=== PATIENT | female | born 1940 | race Caucasian/White ===

== ENCOUNTER 2021-05-18 11:53 | Observation (INO) | payer MEDICARE, SELFPAY ==
[2021-05-18] VITALS (22 sets, daily range): BP systolic 142–185; BP diastolic 68–90; PULSE 59–86; RESP 11–29; TEMP 36.7–37; O2SAT 93–97; BMI 30.4
--- NOTE | 2021-05-18 12:13 | DI.RAD.S_ITS ---
PROCEDURE: XR CHEST 1V INDICATIONS: chest pain TECHNIQUE: One view of the chest was acquired. COMPARISON: None. FINDINGS: Surgical changes and devices: None. Lungs and pleura: Lungs are clear. No pleural effusions or pneumothorax. Mediastinum: Mild aortic atherosclerotic calcifications. Prominence of the right mediastinal border may be secondary to aortic tortuosity or dilation of the ascending thoracic aorta. Heart size is within normal limits. Bones and chest wall: No suspicious bony lesions. Overlying soft tissues appear unremarkable. IMPRESSION: Lungs are clear. Mild prominence of the right mediastinal border may be secondary to aortic tortuosity or a dilated ascending aorta. If there is concern for acute aortic syndrome, findings could be further evaluated with contrast-enhanced chest CT or CTA. Dictated by: Dandy Jack M.D. on 05/18/2021 at 12:55 Approved by: Dandy Jack M.D. on 05/18/2021 at 13:00
[2021-05-18 12:41] LABS: Add Manual Diff / Slide Review NO; Basophils Absolute Auto 0 /uL (0-100); Basophils Percent Auto 0.7 % (0-2); Eosinophils Absolute Auto 0 /uL (0-450); Eosinophils Percent Auto 1.1 % (2-4); Hematocrit 43.2 % (36-46); Hemoglobin 14.6 g/dL (12.0-16.0); Lymphocytes Absolute Auto 1000 /uL (1100-4500); Lymphocytes Percent Auto 23.5 % (25-40); Mean Corpuscular HGB Conc 33.7 % (30-36); Mean Corpuscular Hemoglobin 31.1 PG (26-34); Mean Corpuscular Volume 92.3 fL (80-100); Monocytes Absolute Auto 200 /uL (0-900); Monocytes Percent Auto 5.7 % (3-14); Neutrophils Absolute Auto 3000 /uL (1500-7000); Platelet Count 172 X10^3/uL (150-400); Red Blood Cell Count 4.68 X10^6/uL (4.0-5.2); White Blood Cell Count 4.3 X10^3/uL (4.5-11.0)
[2021-05-18 12:50] LABS: Alanine Aminotransferase 16 IU/L (<35); Albumin 4.4 g/dL (3.5-5.0); Albumin Globulin Ratio 1.5 (1.0-2.8); Alkaline Phosphatase 78 U/L (38-126); Aspartate Aminotransferase 29 IU/L (14-36); BUN Creatinine Ratio 26.7 (6-22); Bilirubin Total 1.8 mg/dL (0.2-1.3); Blood Urea Nitrogen 16 mg/dL (7-17); Calcium 9.2 mg/dL (8.4-10.2); Carbon Dioxide 29 mmol/L (22-32); Chloride 106 mmol/L (98-107); Creatine Kinase 51 U/L (30-135); Estimated Glomerular Filt Rate > 60.0 mL/min (>60); Glucose 98 mg/dL (80-110); Lipase 95 U/L (23-300); Sodium 141 mmol/L (137-145); Total Protein 7.4 g/dL (6.3-8.2)
[2021-05-18 12:51] LABS: HEMOLYSIS 74 (0-50)
[2021-05-18 12:52] LABS: Potassium 4.1 mmol/L (3.4-5.1)
[2021-05-18 13:01] LABS: Troponin I < 0.012 ng/mL (0.01-0.034)
--- NOTE | 2021-05-18 13:48 | ED_ITS ---
HPI - Dizziness General Chief Complaint: Dizziness Stated Complaint: Dizzy Time Seen by Provider: 05/18/21 13:45 Source: patient Mode of arrival: Ambulatory Limitations: no limitations History of Present Illness HPI Narrative: This is an 80-year-old female comes emergency department with complaint of dizziness. Patient describes sensation that the room is spinning around her. Initially it was just when she would get up and down but now she is fine and current even when lying in bed. She states earlier in the week she was sort of walking like she was drunk. She states she has been able to ambulate more annetta ropriately since then. She has a mild headache today but has not been having them persistently, no set vision changes, no new numbness, no new tingling. She describes having some weakness on her right leg an arm but attributes this to chronic right shoulder pain her arm is always weak, and that her right leg hurts when she tries to move it and it will actually move it is weak. She denies chest pain, no shortness of breath. 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 She has a history of hypothyroidism and hypertension she takes a thyroid supplement and amlodipine. No aspirin or anticoagulants. She has had hip surgery x2 bilaterally, left knee surgery. No tobacco, alcohol illicit. Her primary care is a Dr. Doan at [facility]. She is accompanied by her . Related Data Home Medications Medication Instructions Recorded Confirmed levothyroxine 88 mcg capsule 88 mcg PO DAILY 03/29/20 05/18/21 Allergies Allergy/AdvReac Type Severity Reaction Status Date / Time No Known Drug Allergies Allergy Verified 05/18/21 12:07 Review of Systems Review of Systems ROS Unobtainable: All systems reviewed & are unremarkable except as noted in HPI and below Patient History Medical History No active medical problems Social History household members: spouse and children Smoking Status: Never smoker alcohol intake: current Smoking Status: Never smoker Substance Use Type: does not use Exam Narrative Exam Narrative: GEN: well nourished, well appearing female, alert and oriented x 3, patient appears to be in mild distress. HEENT: Atraumatic, pupils are equal round reactive to light, extraocular movements are intact, nares are clear, TMs are clear with no fluid, there is no conjunctival pallor. Throat is clear without any exudates, erythema, tonsillar enlargement or uvular deviation, no facial droop. HEART: Regular rate and rhythm without murmur, clicks, rubs. LUNGS:Lungs clear to auscultation, no wheezes, rales, crackles, chest moves symmetrically ABD:bowel sounds normal, soft, non-tender, no guarding, rebound, rigidity, no masses noted, no hepatosplenomegaly :No CVA tenderness MSCL: Non-tender, no muscle atrophy, muscles strength 5/5 upper and lower extremities, full range of motion. NEURO:CN 2-12 intact, sensation normal. finger nose finger test normal, heel chau test normal, romberg normal Initial Vital Signs Initial Vital Signs: Vital Signs Temperature 98.0 F 05/18/21 12:07 Pulse Rate 76 05/18/21 12:07 Respiratory Rate 14 05/18/21 12:07 Blood Pressure 185/90 H 05/18/21 12:07 Pulse Oximetry 97 05/18/21 12:07 Scores NIH Stroke Scale Level of Conciousness: Alert, keenly responsive Ask month/age: Answers both questions correctly. 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) Left leg drift: No drift for full 5 sec Right leg drift: No drift for full 5 sec Limb ataxia: Absent Sensory on face/arms/legs: Normal, no sensory loss Best language: No aphasia, normal Dysarthria: Normal Extinction or inattention: No abnormality Total NIH Stroke scale score: 0 Course Orders Ordered: ED Orders 05/18/21 12:13 XR chest 1V Stat EKG-12 Lead Stat 05/18/21 12:15 Complete Blood Count AUTO DIFF Stat Comprehensive Metabolic Panel Stat Lipase Stat Magnesium Stat Troponin & CK Cardiac Panel Stat 05/18/21 12:20 COVID19 -Nasal swab/Pre-Proc Stat 05/18/21 14:56 CT angio head and neck Stat CT head/brain wo con Stat Discontinued Medications Aspirin (Aspirin 81 Mg Chew Tab) 324 mg PO NOW ONE Stop: 05/18/21 16:33 Last Admin: 05/18/21 16:51 Dose: 324 mg Documented by: DIONICIO Reevaluation(s) Reevaluation #1: Discussed today's findings including the fact that there was mass in the right axilla as well as the left anterior paratracheal region suggesting ectopic thyroid tissue and further workup would be appropriate including a nuclear medicine thyroid exam. Patient ambulated in the department but had some mild difficulty. Time: 16:25 Consultations Consultation #1: Dr. Turpin, accepts for inpatient CVA/Vertigo for workup with persistent symptoms for 2 weeks. Time: 16:32 Vital Signs Vital signs: Vital Signs - 8 hr 05/18/21 12:07 05/18/21 12:36 05/18/21 13:00 Temperature 98.0 F Pulse Rate 76 73 62 Pulse Rate [Orthostatic Lying] Pulse Rate [Orthostatic Sitting] Pulse Rate [Orthostatic Standing] Respiratory Rate 14 14 Blood Pressure 185/90 H 146/74 H Blood Pressure [Orthostatic Lying] Blood Pressure [Orthostatic Sitting] Blood Pressure [Orthostatic Standing] Pulse Oximetry 97 97 94 05/18/21 13:30 05/18/21 13:32 05/18/21 13:34 Temperature Pulse Rate 59 L 65 76 Pulse Rate [Orthostatic Lying] Pulse Rate [Orthostatic Sitting] Pulse Rate [Orthostatic Standing] Respiratory Rate 13 19 17 Blood Pressure 149/78 H 146/84 H 168/87 H Blood Pressure [Orthostatic Lying] Blood Pressure [Orthostatic Sitting] Blood Pressure [Orthostatic Standing] Pulse Oximetry 93 93 97 05/18/21 13:35 05/18/21 13:38 05/18/21 14:00 Temperature Pulse Rate 74 62 Pulse Rate [Orthostatic Lying] 63 Pulse Rate [Orthostatic Sitting] 76 Pulse Rate [Orthostatic Standing] 73 Respiratory Rate 16 14 Blood Pressure 171/89 H Blood Pressure [Orthostatic Lying] 146/84 H Blood Pressure [Orthostatic Sitting] 168/87 H Blood Pressure [Orthostatic Standing] 171/89 H Pulse Oximetry 97 94 05/18/21 14:01 05/18/21 14:30 05/18/21 15:00 Temperature Pulse Rate 64 66 68 Pulse Rate [Orthostatic Lying] Pulse Rate [Orthostatic Sitting] Pulse Rate [Orthostatic Standing] Respiratory Rate 13 16 29 H Blood Pressure 148/77 H 142/69 H Blood Pressure [Orthostatic Lying] Blood Pressure [Orthostatic Sitting] Blood Pressure [Orthostatic Standing] Pulse Oximetry 94 95 96 05/18/21 15:16 05/18/21 15:30 05/18/21 16:05 Temperature Pulse Rate 66 65 86 Pulse Rate [Orthostatic Lying] Pulse Rate [Orthostatic Sitting] Pulse Rate [Orthostatic Standing] Respiratory Rate 21 11 L Blood Pressure 163/72 H 147/72 H Blood Pressure [Orthostatic Lying] Blood Pressure [Orthostatic Sitting] Blood Pressure [Orthostatic Standing] Pulse Oximetry 97 93 05/18/21 16:07 05/18/21 16:30 Temperature Pulse Rate 73 68 Pulse Rate [Orthostatic Lying] Pulse Rate [Orthostatic Sitting] Pulse Rate [Orthostatic Standing] Respiratory Rate 15 13 Blood Pressure 147/76 H 151/68 H Blood Pressure [Orthostatic Lying] Blood Pressure [Orthostatic Sitting] Blood Pressure [Orthostatic Standing] Pulse Oximetry 96 95 MDM - Dizziness Lab Data Result diagrams: 05/18/21 12:15 05/18/21 12:15 Labs: Lab Results 05/18/21 05/18/21 05/18/21 Range/Units 12:15 12:15 12:20 WBC 4.3 L (4.5-11.0) X10^3/uL RBC 4.68 (4.0-5.2) X10^6/uL Hgb 14.6 (12.0-16.0) g/dL Hct 43.2 (36-46) % MCV 92.3 (80-100) fL MCH 31.1 (26-34) PG MCHC 33.7 (30-36) % RDW 14.0 (11.6-14.8) % Plt Count 172 (150-400) X10^3/uL Neut % (Auto) 69.0 (50-75) % Lymph % (Auto) 23.5 L (25-40) % [place] % (Auto) 5.7 (3-14) % Eos % (Auto) 1.1 L (2-4) % Baso % (Auto) 0.7 (0-2) % Neut # (Auto) 3000 (8365-9491) /uL Lymph # (Auto) 1000 L (1955-7048) /uL [place] # (Auto) 200 (0-900) /uL Eos # (Auto) 0 (0-450) /uL Baso # (Auto) 0 (0-100) /uL Sodium 141 (137-145) mmol/L Potassium 4.1 (3.4-5.1) mmol/L Chloride 106 (98-107) mmol/L Carbon Dioxide 29 (22-32) mmol/L BUN 16 (7-17) mg/dL Creatinine 0.60 (0.52-1.04) mg/dL Estimated GFR > 60.0 (>60) mL/min BUN/Creatinine Ratio 26.7 H (6-22) Glucose 98 (80-110) mg/dL Calcium 9.2 (8.4-10.2) mg/dL Magnesium 2.0 (1.6-2.3) mg/dL Total Bilirubin 1.8 H (0.2-1.3) mg/dL AST 29 (14-36) IU/L ALT 16 (<35) IU/L Alkaline Phosphatase 78 (38-126) U/L Total Creatine Kinase 51 (30-135) U/L CK-MB (CK-2) TNP CK-MB (CK-2) Rel Index TNP Troponin I < 0.012 (0.01-0.034) ng/mL Total Protein 7.4 (6.3-8.2) g/dL Albumin 4.4 (3.5-5.0) g/dL Globulin 3.0 (1.7-4.1) g/dL Albumin/Globulin Ratio 1.5 (1.0-2.8) Lipase 95 (23-300) U/L SARS-CoV-2 (PCR) Negative (Negative) Imaging Data Chest x-ray: Radiologist's Impression: Launch?[address] [address] XRay Report Signed Patient: Joseline Mccain MR#: [id number] : 1940 Acct:[id number] Age/Sex: 80 / F Date of Service: 05/18/21 Loc: ED Accession Number: [id number] ?? Procedure: XR chest 1V Ordering Provider: Mank,Larissa C D.O. PROCEDURE:? XR CHEST 1V ? INDICATIONS:? chest pain ? TECHNIQUE:? One view of the chest was acquired.? ? COMPARISON:? None. ? FINDINGS:? ? Surgical changes and devices:? None.? ? Lungs and pleura:? Lungs are clear.? No pleural effusions or pneumothorax.? ? Mediastinum:? Mild aortic atherosclerotic calcifications.? Prominence of the right mediastinal border may be secondary to aortic tortuosity or dilation of the ascending thoracic aorta.? Heart size is within normal limits. ? Bones and chest wall:? No suspicious bony lesions.? Overlying soft tissues appear unremarkable.? ? IMPRESSION:? Lungs are clear.? Mild prominence of the right mediastinal border may be secondary to aortic tortuosity or a dilated ascending aorta.? If there is concern for acute aortic syndrome, findings could be further evaluated with contrast- enhanced chest CT or CTA. ? ? Dictated by: Dandy Jack M.D. on 05/18/2021 at 12:55 ? ? Approved by: Dandy Jack M.D. on 05/18/2021 at 13:00?? CTA - brain/neck: Radiologist's Impression: Launch?[place] [address] CT Scan Report Signed Patient: Joseline Mccain MR#: [id number] : 1940 Acct:[id number] Age/Sex: 80 / F Date of Service: 05/18/21 Loc: ED Accession Number: [id number] ?? Procedure: CT angio head and neck Ordering Provider: Larissa Christian D.O. PROCEDURE:? CT ANGIO HEAD AND NECK ? INDICATIONS:? vertigo x 2 weeks, worsening. ? TECHNIQUE:? After the administration of intravenous contrast, 1 mm thick sections acquired from the aortic arch through the [place] of [place].? Post-contrast 4.5 mm thick sections then re-acquired from the foramen magnum to the vertex.? 3-dimensional mqjolfj-yptlxjkub-eviqxoznkj (MIP) and/or volume rendering reformats were acquired of the central intracranial vasculature and neck separately. ? COMPARISON:? None. ? FINDINGS:? Image quality:? Excellent.? ? BRAIN:? The ventricular system and cortical sulci demonstrate atrophy, consistent for the patient's stated age. There are areas of hypodensity within the periventricular and subcortical white matter.? There is no acute intra-or extra axial fluid collection. No acute hemorrhage, mass lesion or midline shift. Brainstem is unremarkable. Globes are symmetrical. Sinuses are aerated. Osseous structures are intact. ? HEAD CT ANGIOGRAPHY:? Anterior circulation:? Intracranial internal carotid arteries are normal in size and flow.? The flow within the paired anterior cerebral arteries is normal and symmetric.? The flow within the middle cerebral arteries is normal and symmetric.? The anterior communicating artery is seen.? No aneurysms are seen.? ? Posterior circulation:? Visualized portions of the vertebral arteries demonstrate normal caliber, and join to form a normal appearing basilar artery.? Flow within the posterior cerebral arteries is normal and symmetric.? No aneurysms are seen.? There is a slight left vertebral artery dominance. ? NECK CT ANGIOGRAPHY:? Carotid system:? The great vessels demonstrate a conventional anatomy as they arise from the aortic arch.? The origins of the common carotid arteries appear patent.? The common carotid arteries demonstrate normal caliber and courses.? The bifurcation regions are both widely patent.? The internal carotid arteries demonstrate normal calibers and courses.? ? Posterior circulation:? The origins of the vertebral arteries both appear widely patent.? The more superior extracranial portions of both vertebral arteries also demon strate normal courses and calibers.? They join to form a normal appearing basilar artery.? ? Soft tissues:? Visualized neck soft tissues demonstrate no suspicious abnormalities.? There is a 2.8 x 2.1 cm focus of soft tissue density in the left anterior paratracheal region approximately 4 cm inferior to the left thyroid lobe.? Left thyroid particularly the left lobe is hypoplastic.? No priors are available for comparison.? There is a heterogeneous focus area of low attenuation and enhancement within the right axilla measuring 3.9 x 4.2 cm.? ? Bones:? No suspicious bony lesions.? Visualized cervical spine appears normally aligned.? IMPRESSION:? 1. No acute intracranial process. ? 2. Moderate atrophy and chronic microvascular ischemic changes. ? 3. No areas of hemodynamically significant stenosis, vascular occlusion or aneurysmal dilation within the anterior or posterior circulation. ? 4. No areas of hemodynamically significant stenosis, vascular occlusion or aneurysmal dilation within the neck vasculature. ? 5. Heterogeneous soft tissue density in the left anterior paratracheal region.? 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 However, other etiology cannot be definitively excluded.? As clinically indicated, further evaluation with nuclear medicine thyroid exam may be helpful. ? 6. Heterogeneous mass within the right axilla as described above.? While etiology is uncertain on the basis of this exam, overall appearance raises concern for malignancy and biopsy is recommended. ? Any quantitative measurements of stenosis were performed using NASCET criteria.? ? ? Dictated by: Caitlyn Coughlin M.D. on 05/18/2021 at 15:36 ? ? Approved by: Caitlyn Coughlin M.D. on 05/18/2021 at 15:43?? ECG Data Attestation: I personally reviewed and interpreted this ECG as follows: Interpretation: Sinus rhythm rate of 65 VT 158, QRS 88 QTC 430. Patient does not have any priors for comparison. [facility] Narrative Medical decision making narrative: This is an 80-year-old female comes emergency department with complaint of persistent vertigo symptoms for the past 2 weeks. It has not improved it has been rapidly worsening. She does note some time she walks like she is drunk. Head and neck CT angiography shows some possible malignancy but no other clear changes or hemodynamic changes. 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 Patient was given aspirin and spoke with hospitalist about keeping for observation stroke workup an MRI to more fully evaluate her persistent vertigo. Discharge Plan Departure Patient Disposition: Admitted As Inpatient Clinical Impression: Vertigo, Acute CVA (cerebrovascular accident) Admit Date/Time: 05/18/21 16:32 Admit Provider: Ferdinand Turpin
--- NOTE | 2021-05-18 14:56 | DI.CT.S_ITS ---
PROCEDURE: CT HEAD/BRAIN WO CON INDICATIONS: vertigo x 2 weeks, worsening. TECHNIQUE: Noncontrast 4.5 mm thick angled axial sections acquired from the foramen magnum to the vertex, with coronal and sagittal reformats. For radiation dose reduction, the following was used: automated exposure control, adjustment of mA and/or kV according to patient size. COMPARISON: [facility], CT, CT ANGIO HEAD AND NECK, 05/18/2021, 15:02. FINDINGS: Image quality: Excellent. CSF spaces: Basal cisterns are patent. No extra-axial fluid collections. The ventricles are symmetric in size and shape. Brain: No intracranial bleeds or masses. There is cerebral volume loss for age, with resultant ventricular and sulcal prominence. There are periventricular and deep white matter chronic small vessel ischemic changes. There is intracranial internal carotid artery atherosclerosis. Skull and face: Calvarium and visualized facial bones appear intact, without suspicious lesions. Sinuses: Visualized sinuses and mastoids are clear. IMPRESSION: 1. No acute intracranial process. 2. Moderate atrophy and chronic microvascular ischemic changes. Dictated by: Caitlyn Coughlin M.D. on 05/18/2021 at 15:33 Approved by: Caitlyn Coughlin M.D. on 05/18/2021 at 15:35
--- NOTE | 2021-05-18 14:56 | DI.CT.S_ITS ---
PROCEDURE: CT ANGIO HEAD AND NECK INDICATIONS: vertigo x 2 weeks, worsening. TECHNIQUE: After the administration of intravenous contrast, 1 mm thick sections acquired from the aortic arch through the [place] of [place]. Post-contrast 4.5 mm thick sections then re-acquired from the foramen magnum to the vertex. 3-dimensional hyziase-pimjxgcwv-qwdzavhton (MIP) and/or volume rendering reformats were acquired of the central intracranial vasculature and neck separately. COMPARISON: None. FINDINGS: Image quality: Excellent. BRAIN: The ventricular system and cortical sulci demonstrate atrophy, consistent for the patient's stated age. There are areas of hypodensity within the periventricular and subcortical white matter. There is no acute intra-or extra axial fluid collection. No acute hemorrhage, mass lesion or midline shift. Brainstem is unremarkable. Globes are symmetrical. Sinuses are aerated. Osseous structures are intact. HEAD CT ANGIOGRAPHY: Anterior circulation: Intracranial internal carotid arteries are normal in size and flow. The flow within the paired anterior cerebral arteries is normal and symmetric. The flow within the middle cerebral arteries is normal and symmetric. The anterior communicating artery is seen. No aneurysms are seen. Posterior circulation: Visualized portions of the vertebral arteries demonstrate normal caliber, and join to form a normal appearing basilar artery. Flow within the posterior cerebral arteries is normal and symmetric. No aneurysms are seen. There is a slight left vertebral artery dominance. NECK CT ANGIOGRAPHY: Carotid system: The great vessels demonstrate a conventional anatomy as they arise from the aortic arch. The origins of the common carotid arteries appear patent. The common carotid arteries demonstrate normal caliber and courses. The bifurcation regions are both widely patent. The internal carotid arteries demonstrate normal calibers and courses. Posterior circulation: The origins of the vertebral arteries both appear widely patent. The more superior extracranial portions of both vertebral arteries also demonstrate normal courses and calibers. They join to form a normal appearing basilar artery. Soft tissues: Visualized neck soft tissues demonstrate no suspicious abnormalities. There is a 2.8 x 2.1 cm focus of soft tissue density in the left anterior paratracheal region approximately 4 cm inferior to the left thyroid lobe. Left thyroid particularly the left lobe is hypoplastic. No priors are available for comparison. There is a heterogeneous focus area of low attenuation and enhancement within the right axilla measuring 3.9 x 4.2 cm. Bones: No suspicious bony lesions. Visualized cervical spine appears normally aligned. IMPRESSION: 1. No acute intracranial process. 2. Moderate atrophy and chronic microvascular ischemic changes. 3. No areas of hemodynamically significant stenosis, vascular occlusion or aneurysmal dilation within the anterior or posterior circulation. 4. No areas of hemodynamically significant stenosis, vascular occlusion or aneurysmal dilation within the neck vasculature. 5. Heterogeneous soft tissue density in the left anterior paratracheal region. 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 However, other etiology cannot be definitively excluded. As clinically indicated, further evaluation with nuclear medicine thyroid exam may be helpful. 6. Heterogeneous mass within the right axilla as described above. While etiology is uncertain on the basis of this exam, overall appearance raises concern for malignancy and biopsy is recommended. Any quantitative measurements of stenosis were performed using NASCET criteria. Dictated by: Caitlyn Coughlin M.D. on 05/18/2021 at 15:36 Approved by: Caitlyn Coughlin M.D. on 05/18/2021 at 15:43
[2021-05-18 15:20] LABS: COVID19 -Nasal RAPID Negative (Negative)
[2021-05-18] MEDS: ASPIRIN 81 MG CHEW TAB 324 MG PO (16:51)
--- NOTE | 2021-05-18 18:58 | DI.MRI.S_ITS ---
PROCEDURE: MR HEAD/BRAIN WO CON INDICATIONS: r/o post CVA TECHNIQUE: Non-contrast axial T1 spin echo, axial T2 fast spin echo, sagittal and axial FLAIR, coronal T2 fast spin echo, axial gradient echo, axial diffusion and ADC through the brain. COMPARISON: None. FINDINGS: Image quality: Excellent. CSF spaces: Ventricles appear symmetric in size and shape. Basal cisterns are patent. No extra-axial fluid collections. Brain: No intracranial bleeds or mass effects. There is cerebral volume loss for age. There are mild periventricular and deep white matter chronic small vessel ischemic changes. Brainstem appears normal. Diffusion-weighted images show no acute ischemic insults. No chronic ischemic insults. Normal intravascular flow voids are present. Skull and face: Calvarial bone marrow is normal in signal. Orbits are normal. Sinuses: Sinuses and mastoids are clear. IMPRESSION: 1. No evidence acute stroke, hemorrhage, or mass. 2. Age-related volume loss and mild small vessel ischemic change. Dictated by: Balbir Arriaza M.D. on 05/19/2021 at 14:21 Approved by: Balbir Arriaza M.D. on 05/19/2021 at 14:26
[2021-05-18 21:39] LABS: TSH w/ Reflex to FT4 1.03 uIU/mL (0.47-4.68)
[2021-05-19] VITALS (12 sets, daily range): BP systolic 127–164; BP diastolic 72–102; PULSE 72–102; RESP 16–18; TEMP 36.3–36.9; O2SAT 94–98
--- NOTE | 2021-05-19 04:11 | P.HP_ITS ---
History of Present Illness History of Present Illness Date Patient Seen: 05/18/21 Time Patient Seen: 18:57 Chief complaint: Dizzy Narrative: Joseline Mccain?is an 80-year-old female with a history of hypothyroidismand HTN presented to the ED with complaint of dizziness.? Patient describes sensation that the room is spinning around her.? Initially it was just when she would get up and down but now she experiences even when lying in bed.? She states she has not been able to ambulate, do to vertigo. Patient denies headache, vision changes, numbness, tingling, chest pain, SOB, recent head injury, nausea vomiting abdominal pain, fever, body aches, chills, ear aches, recent URI s/s, urinary symptoms, recent illness, injury, or trauma. She describes having some weakness on her right leg an arm but attributes this to chronic right shoulder pain her arm is always weak, and that her right leg hurts when she tries to move it and it will actually move it is weak.? She denies chest pain, no shortness of breath.? Upon admit patient's vitals are stable blood pressure is mildly elevated temp 98.6?, BP 153/81, HR 63, R 20, O2 saturation 98% on room air. Patient's CBC CMP are grossly within normal limits, troponin and lipase are negative, patient's head neck CTA is negative for any acute intracranial processes, head CT is negative for any acute intracranial processes, chest x-ray demonstrates mild prominence of the right mediastinal border. Patient admitted for vertigo, neurological deficit, rule out CVA. 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 Family & Social History Family History Mother Congestive heart failure Cancer Father Heart attack Brother Thyroid activity decreased Social History: household members spouse,children Prior Living Arrangements House Safety & Behavioral: Feels Safe in Current Yes Environment Suicidal Ideation Description None Suicide Plan Description No Plan Tobacco & Substance use: Smoking Status Never smoker alcohol intake current alcohol intake frequency holiday/special occasion Substance Use Type does not use Meds Home Medications and Allergies Home Medications Medication Instructions Recorded Confirmed Type levothyroxine 88 mcg capsule 88 mcg PO DAILY 03/29/20 05/18/21 History Allergies Allergy/AdvReac Type Severity Reaction Status Date / Time No Known Drug Allergies Allergy Verified 05/18/21 12:07 Review of Systems Review of Systems Narrative: All 12 point systems reviewed with the patient and are negative except otherwise documented. Exam Vital Signs (past 8 hours): - 05/18/21 20:15 05/18/21 21:25 05/19/21 00:26 Temperature Pulse Rate 63 Pulse Rate [Orthostatic Lying] Pulse Rate [Orthostatic Sitting] Pulse Rate [Orthostatic Standing] Respiratory Rate 20 Blood Pressure Blood Pressure [Orthostatic Lying] Blood Pressure [Orthostatic Sitting] Blood Pressure [Orthostatic Standing] Pulse Oximetry 96 96 95 05/19/21 01:00 05/19/21 02:00 Temperature 98.4 F Pulse Rate 77 Pulse Rate [Orthostatic Lying] 77 Pulse Rate [Orthostatic Sitting] 84 Pulse Rate [Orthostatic Standing] 88 Respiratory Rate 18 Blood Pressure 132/80 Blood Pressure [Orthostatic Lying] 132/80 Blood Pressure [Orthostatic Sitting] 142/100 H Blood Pressure [Orthostatic Standing] 146/102 H Pulse Oximetry 98 98 Oxygen Delivery Method Room Air Oxygen Flow Rate 0 Narrative Exam Narrative: General: Patient is a well-developed, well-nourished rosalino elderly female, who appears younger than stated age, in no distress at this time. HEENT: Normocephalic, atraumatic, extraocular muscles intact, oral pharynx is clear and mucous membranes are moist. Neck is supple and symmetric, trachea is midline, no adenopathy, no thyroid enlargement, nontender, no masses palpated. Negative for JVD Chest: Normal AP diameter and contour without kyphoscoliosis, no nasal flaring, retractions, or tachypneic labored Lungs: Auscultation of all lung potter are clear without adventitious sounds, wheezes, rhonchi, or rales. Cardio: S1 & S2 with regular rate and rhythm without murmur, rubs, or gallops, no carotid bruit, no cardiac pulsations present. Abdomen: Soft nontender, negative for organomegaly, or masses. Bowel sounds are present in all 4 quadrants without guarding or rebound, no CVA tenderness. Musculoskeletal: Muscle strength and tone are equal within normal limits, no deformity, crepitus, effusions, cyanosis, clubbing or edema present. Full range of motion intact radial and pedal pulses are normal. Skin: Warm dry and intact without rashes, ulcerations or petechiae. Neuro: Alert and orientated x3, strength is +5/5 in all extremities, sensation to touch intact, no gross deficits noted of cranial nerves. Psych: Patient has a well-kept appearance, appropriate affect, mental status attitude thought context and judgment are appropriate for age. Objective Labs Result Diagrams: 05/18/21 12:15 05/18/21 12:15 Labs: Laboratory Results - last 24 hr 05/18/21 05/18/21 05/18/21 12:15 12:15 12:15 WBC 4.3 L RBC 4.68 Hgb 14.6 Hct 43.2 MCV 92.3 MCH 31.1 MCHC 33.7 RDW 14.0 Plt Count 172 Neut % (Auto) 69.0 Lymph % (Auto) 23.5 L Schuyler % (Auto) 5.7 Eos % (Auto) 1.1 L Baso % (Auto) 0.7 Neut # (Auto) 3000 Lymph # (Auto) 1000 L Schuyler # (Auto) 200 Eos # (Auto) 0 Baso # (Auto) 0 Sodium 141 Potassium 4.1 Chloride 106 Carbon Dioxide 29 BUN 16 Creatinine 0.60 Estimated GFR > 60.0 BUN/Creatinine Ratio 26.7 H Glucose 98 Calcium 9.2 Magnesium 2.0 Total Bilirubin 1.8 H AST 29 ALT 16 Alkaline Phosphatase 78 Total Creatine Kinase 51 CK-MB (CK-2) TNP CK-MB (CK-2) Rel Index TNP Troponin I < 0.012 Total Protein 7.4 Albumin 4.4 Globulin 3.0 Albumin/Globulin Ratio 1.5 Lipase 95 TSH 1.03 SARS-CoV-2 (PCR) 05/18/21 12:20 WBC RBC Hgb Hct MCV MCH MCHC RDW Plt Count Neut % (Auto) Lymph % (Auto) Schuyler % (Auto) Eos % (Auto) Baso % (Auto) Neut # (Auto) Lymph # (Auto) Schuyler # (Auto) Eos # (Auto) Baso # (Auto) Sodium Potassium Chloride Carbon Dioxide BUN Creatinine Estimated GFR BUN/Creatinine Ratio Glucose Calcium Magnesium Total Bilirubin AST ALT Alkaline Phosphatase Total Creatine Kinase CK-MB (CK-2) CK-MB (CK-2) Rel Index Troponin I Total Protein Albumin Globulin Albumin/Globulin Ratio Lipase TSH SARS-CoV-2 (PCR) Negative Assessment & Plan Assessment & Plan narrative: Joseline Landerosis an 80-year-old female with a history of hypothyroidismand HTN presented to the ED with complaint of dizziness.? 1. Neurological deficit (vertigo), rule out CVA, acute, present on admission I suspect that this is benign positional vertigo -MRI in the morning -orthostats to r/o orthostatic hypotension -PT consult: To include [place]-Hallpike maneuvers -NIH score: 0 2. Essential hypertension, acute on chronic, present on admission -continue amlodipine 3. Acquired hypothyroidism, chronic, present on admission -TSH ordered -continue levothyroxine 4. Obesity as evidence by BMI of 30.6, acute on chronic, present on admission -dietary consult placed Code status: Full Surrogate decision maker: Spouse Karl Mccain COVID PCR: Negative COVID vaccination: Unknown DVT/VTE prophylaxis: Lovenox and SCDs Disposition: Estimated length of stay less than 2 midnights patient admitted for observation. I have utilized all available immediate resources to obtain, update, or review t he patient's current medications. I confirmed that the patient's advanced care plan is present, Code status is documented and/or surrogate decision maker is listed in the patient's medical record. Time Spent With Patient Critical Care time: I spent a total of [] minutes of critical care time on this patient's care today; this time is exclusive of procedural time. Quality VTE Deep Vein Thrombosis/Pulmonary Embolism Present on Admission: No
[2021-05-19] MEDS: LEVOTHYROXINE 88 MCG TABLET PO (05:53)
[2021-05-19] MEDS: ENOXAPARIN 40 MG/0.4 ML SYRINGE SUBCUT (10:50)
--- NOTE | 2021-05-19 11:20 | PT.IIE ---
Medical History (Last Updated 05/19/21 @ 04:25 by Xenia Friedman, [facility]) Essential hypertension Hypothyroidism (acquired) No active medical problems Obesity (BMI 30.0-34.9) Physical Therapy Inpatient Evaluation/Re-Eval M1 PT/OT-IP Prior Functional Status Start: 05/19/21 14:32 Freq: NEEDED Status: Active Protocol: Document 05/19/21 11:20 AB (Rec: 05/19/21 15:14 AB [email or web address]) Medical Review Prior Functional Status Medical History Reviewed Yes Communication able to make needs known Mobility and Gait pt tated that she is independent with all mobilities and ambulation without AD Social History Household Members spouse,children Living Arrangements House Number of Floors (Floors) Two Floors Number of Stairs To Enter/Railing? 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 but son does not need physical assist M2 PT-IP Current Condition Start: 05/19/21 14:32 Freq: NEEDED Status: Active Protocol: Document 05/19/21 11:20 AB (Rec: 05/19/21 15:14 AB [email or web address]) Physical Therapy Current Condition Current Condition Evaluation Date 05/19/21 Treatment Diagnosis r/o CVA; vertigo Onset Date 05/18/21 M3 PT-IP Subjective Start: 05/19/21 14:32 Freq: NEEDED Status: Active Protocol: Document 05/19/21 11:20 AB (Rec: 05/19/21 [email or web address] Subjective Physical Therapy Visit Type Type Initial Evaluation Visit Start Time 11:20 Visit Stop Time 12:00 Total Visit Minutes 40 Number of ANESTHESIA ASSISTANT Visits 0 Physical Therapy Visit Comments Patient Comments pt agreeable to do PT M4 PT-IP Mobility and Gait Start: 05/19/21 14:32 Freq: NEEDED Status: Active Protocol: Document 05/19/21 11:20 AB (Rec: 05/19/21 15:14 AB [email or web address]) PT-Bed Mobility Assessment Supine to Sit Supine to Sit Minimal Assistance Sit to Supine Sit to Supine Standby Assistance PT-Transfer Assessment Sit to and From Stand Sit to and from Stand Contact Guard Assistance Equipment Transfer Assistive Device None,Gait Belt Orthotic/Prosthetic Devices or Brace: No Transfers Transfer Destination Chair Transfer Technique ambulated Transfer Ability Level of Assist Standby Assistance,Contact Guard Assistance,1 Person Assistance,Use of Upper Extremities Comments Mobility Comments pt c/o on/off dizziness like ship rocking sensation per pt with head movement for a few seconds only. stated that this has been on going for ~ 2 weeks but has gotten worse that she went to the ER. pt stated that usually, dizziness goes away after being still. pt also stated that she has R shoulder rotator cuff tear and has been going to PT for the shoulder. pt completed supine to sit min A and cues. pt can be impulsive. initial dizziness but dissipated after ~ 5 sec. pt completed sit to stand CGA initial dizziness gone for ~ 5 sec and ambulated in room CGA ~ 25 ft. pt sat on EOB. pt presents with forward and forward shoulder posture. cued for upright posture. educated scap retraction and chin tuck. Assessed cervical ROM and WNL. Further assessed dizziness during change in head postion and c/o slight dizziness but only for 2-5 sec. instructed to lay back in bed SBA. c/o dizziness only with head turned to the R with nystagmus R eye but no dizziness in horizontal and head turned to the L. Pt will require further assessment for vestibular therapy. pt informed regarding outpt PT for vestibular assessment. pt sat back up min A. no dizziness and standing SBA no dizziness and ambulated in room SBA without AD. agreed to sit on chair and positioned. call light and table placed within reach. Gait Assessment Gait Gait Assistance Required: Standby Assistance,Contact Guard Assist Distance (Feet) 25 Able to Maintain Weight Bearing Status Yes During Gait Assistive Devices Assistive Device None,Gait Belt Orthotic/Prosthetic Devices or Brace: No Gait Deviations General Gait Pattern Antalgic,Decreased Stride Length,Decreased Feet Clearance Factors Limiting Gait Function Factors Limiting Gait Function Decreased Activity Tolerance, Decreased Strength, Incoordination,Poor Balance, Poor Safety Awareness PT-Balance Assessment Sitting Balance and Reactions Static Sitting Balance Ability Good Dynamic Sitting Balance Ability Good Standing Balance and Reactions Static Standing Balance Ability Good Dynamic Standing Balance Ability Good M5 PT-IP Objective Assessments Start: 05/19/21 14:32 Freq: NEEDED Status: Active Protocol: Document 05/19/21 11:20 AB (Rec: 05/19/21 15:14 AB [id number]) Orientation Orientation/Cognition Level of Alertness Alert Orientation Name Language Function Ability No Deficits Noted Gross Range of Motion Lower Extremity ROM Assessment Within Functional Limits Strength Lower Extremity Strength Assessment Within Functional Limits Coordination Assessment Gross Coordination Gross Coordination WNL Sensation Assessment Sensation Gross Sensation WNL Muscle Tone Muscle Tone WNL Yes M6 PT-IP Treatment Start: 05/19/21 14:32 Freq: NEEDED Status: Active Protocol: Document 05/19/21 11:20 AB (Rec: 05/19/21 15:14 AB [email or web address]) Physical Therapy Treatment Education Education Provided Safety M7 PT-IP Assessment and Plan Start: 05/19/21 14:32 Freq: NEEDED Status: Active Protocol: Document 05/19/21 11:20 AB (Rec: 05/19/21 15:14 AB [email or web address]) PT Summary Assessment and Plan Potential Rehabilitation Potential Fair Status of Condition at Evaluation Stable Summary Impairments Pain,ROM,Strength,Balance, Coordination,Sensation,Tone, Cognition,Bed Mobility, Transfers,Gait,Activity Tolerance Assessment Summary pt requiring SBA to CGA with ambulation without AD. c/o dizziness with change in head position but dissipates after a few seconds but also not consistent with her symptoms. Further vestibular assessment indicated and can be address on an outpt basis at this time. informed nurse regarding pt's symptoms. Goals Bed Mobility Goal Independent Transfer Goal Independent Gait Goal Independent Gait Distance 200 Other Goals up/down 3 steps 1 rail SBA up/down 14 steps L rail SBA Days to Meet Goals 5 Frequency of Treatment Frequency Of Treatment Once a Day Treatment Plan Physical Therapy Treatment Plan Bed Mobility Training,Transfer Training,Gait Training, Therapeutic Exercise,Balance Retraining,Discharge Planning, Hot or Cold Pack,Neuromuscular Re-ed,Coordination Retraining ,Manual Therapy Recommendations To Nursing Amount of Assist Needed Standby Assistance Discharge Recommendations PT Discharge Recommendations Home with Assistance, Outpatient PT Transportation Needs at Discharge Private Vehicle
--- NOTE | 2021-05-19 15:53 | PM.DS.1 ---
History of Present Illness History of Present Illness Chief complaint: Dizzy Narrative: 80-year-old female with a history of hypothyroidismand HTN presented to the ED with complaint of dizziness.? Patient describes sensation that the room is spinning around her.? Initially it was just when she would get up and down but now she experiences even when lying in bed.? She states she has not been able to ambulate, do to vertigo. Patient denies headache, vision changes, numbness, tingling, chest pain, SOB, recent head injury, nausea vomiting abdominal pain, fever, body aches, chills, ear aches, recent URI s/s, urinary symptoms, recent illness, injury, or trauma.? She describes having some weakness on her right leg an arm but attributes this to chronic right shoulder pain her arm is always weak, and that her right leg hurts when she tries to move it and it will actually move it is weak.? She denies chest pain, no shortness of breath.?? Upon admit patient's vitals are stable blood pressure is mildly elevated temp 98.6?, BP 153/81, HR 63, R 20, O2 saturation 98% on room air.? Patient's CBC CMP are grossly within normal limits, troponin and lipase are negative, patient's head neck CTA is negative for any acute intracranial processes, head CT is negative for any acute intracranial processes, chest x-ray demonstrates mild prominence of the right mediastinal border.? Patient admitted for vertigo, neurological deficit, rule out CVA. Discharge Providers Provider Date of admission: 05/18/21 16:32 Discharge Date: 05/19/21 Primary care physician: Doctor Hilda MD Consults: 05/18/21 19:03 Consult to Physical Therapy Evaluate & Treat Comment: include [place]-Hall[place]ay manuvers Physician Instructions: Evaluate and Treat 05/18/21 20:54 Consult to Dietitian, Adult Routine Comment: Reason For Exam: BMI 30.6 Discharge provider: Ferdinand Turpin MD Summary Hospital Course Discharge Diagnosis: 1. Acute vertigo, peripheral 2. Possible mass right axilla on CT-recommend further follow-up Procedures: CXR:Lungs are clear.? Mild prominence of the right mediastinal border may be secondary to aortic tortuosity or a dilated ascending aorta.? If there is concern for acute aortic syndrome, findings could be further evaluated with contrast-enhanced chest CT or CTA. Head CT:1. No acute intracranial process. ? 2. Moderate atrophy and chronic microvascular ischemic changes. Head/neck CTA:1. No acute intracranial process. ? 2. Moderate atrophy and chronic microvascular ischemic changes. ? 3. No areas of hemodynamically significant stenosis, vascular occlusion or aneurysmal dilation within the anterior or posterior circulation. ? 4. No areas of hemodynamically significant stenosis, vascular occlusion or aneurysmal dilation within the neck vasculature. ? 5. Heterogeneous soft tissue density in the left anterior paratracheal region.? 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 However, other etiology cannot be definitively excluded.? As clinically indicated, further evaluation with nuclear medicine thyroid exam may be helpful. ? 6. Heterogeneous mass within the right axilla as described above.? While etiology is uncertain on the basis of this exam, overall appearance raises concern for malignancy and biopsy is recommended. Brain MR:1. No evidence acute stroke, hemorrhage, or mass. ? 2. Age-related volume loss and mild small vessel ischemic change Hospital Course: Patient was admitted to rule out posterior CVA. MRI showed no evidence of stroke. She does have incidental possible right axillary mass. On exam I do not feel any mass or abnormal lymph nodes, also right breast exam is normal. Consider further PCP evaluation with diagnostic ultrasound and biopsy if indicated. Patient is informed of this finding. Patient had PT evaluation in hospital and they were able to reproduce vertigo symptoms in slight right eye and nystagmus with sitting her up. At this time her symptoms are tolerable a controlled where she can be discharged. I have referred her for outpatient PT vestibular therapy. May take meclizine 12.5-25 mg as needed for severe symptoms. Status at Discharge Overall status at discharge: patient is progressing back to baseline Exam Vital Signs (past 8 hours): - 05/19/21 09:21 05/19/21 09:30 05/19/21 13:55 Temperature 98.1 F Pulse Rate 73 Pulse Rate [Orthostatic Lying] 102 H Pulse Rate [Orthostatic Sitting] 85 Pulse Rate [Orthostatic Standing] 72 Respiratory Rate 16 Blood Pressure 127/72 Blood Pressure [Orthostatic Lying] 138/93 H Blood Pressure [Orthostatic Sitting] 138/86 Blood Pressure [Orthostatic Standing] 147/80 H Pulse Oximetry 94 95 Oxygen Delivery Method Room Air Oxygen Flow Rate 0 Objective Labs Result Diagrams: 05/18/21 12:15 05/18/21 12:15 Labs: Laboratory Results - last 24 hr 05/18/21 12:15 TSH 1.03 PFSH Medical History (Updated 05/19/21 @ 04:25 by KINA Cunningham-ANTIONETTE) Essential hypertension Hypothyroidism (acquired) No active medical problems Obesity (BMI 30.0-34.9) Surgical History (Updated 05/19/21 @ 04:25 by KINA Cunningham-ANTIONETTE) 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 MRI did not show a stroke. Head/neck CT showed possible mass in the right axilla (armpit). Please follow up with PCP for further evaluation such as with ultrasound exam and biopsy if indicated. Discharge orders & Medications Prescriptions: New meclizine 25 mg tablet 12.5 - 25 mg PO TID PRN (Reason: dizziness) Qty: 20 0RF Continued levothyroxine 88 mcg capsule 88 mcg PO DAILY 0RF Follow up/Referrals: Physical Therapy, [facility] [Other] (vestibular therapy) Doctor Stevens MD [Primary Care Provider] - Diet/Activity/Treatments Diet: Regular Discharge Data Primary Care Provider: Doctor Hilda Quality VTE Deep Vein Thrombosis/Pulmonary Embolism Present on Admission: No
== END 2021-05-19 16:59 | disposition home or self-care (01) ==
LOC: ED 13:45 → AC 16:33
PROVIDERS: Nurse Practitioner Family; Admitting Provider Internal Medicine; Emergency Provider Emergency Medicine; Referring Provider Emergency Medicine; Visit Provider Internal Medicine
DX: H81.391 Other peripheral vertigo, right ear (principal); I10 Essential (primary) hypertension; E03.9 Hypothyroidism, unspecified; Z20.822 Contact with and (suspected) exposure to COVID-19
CPT/HCPCS: 36415; 70450; 70496; 70498; 70551; 71045; 80053; 82550; 83690; 83735; 84443; 84484; 85025; 87635; 93005; 94760; 96372; 97161; 97530; 99284; C9803; G0378; J1650

== ENCOUNTER 2021-08-02 07:30 | Outpatient (RCR) | payer MEDICARE, SELFPAY ==
[2021-05-18 18:08] VITALS: BMI 30.4
--- NOTE | 2021-07-11 15:01 | PT.OIE ---
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 Visit Care Team Role Provider Type Nancy Doan Attending Provider Non-Staff Family Provider Primary Care Provider Referring Provider Specialty: Internal Medicine Address: [address] [place] [address], [facility] [address], [place], [facility] Email: Physical Therapy Initial Evaluation PT-OP-A Visit Information Start: 07/11/21 14:32 Freq: Status: Active Protocol: Document 07/11/21 12:00 DCW (Rec: 07/11/21 15:01 DCW [id number]) Out-Patient Physical Therapy Visit Information Visit Information Visit Type Initial Evaluation Visit Start Time 12:00 Visit Stop Time 12:45 Total Visit Minutes 45 Visit Number 1 Number of VEHICLE SERVICE ATTENDANT Visits 0 Evaluation Information Evaluation Date 07/11/21 PT-OP-B Current Condition Start: 07/11/21 14:32 Freq: Status: Active Protocol: Document 07/11/21 12:00 DCW (Rec: 07/11/21 15:01 DCW [id number]) Current Condition History of Current Condition Onset Date Early May, Current Complaints Positional vertigo History of Current Condition Pt is an 81 year old female complaining of a ~2 month history of motion-induced vertigo. Pt reports episodes last a couple of seconds. Symptoms are provoked by laying back in bed, bending forward, and looking up. Symptoms reported as the room starts spinning. Pt was originally seen in the ED to rule out CVA, both MRI and CT were unremarkable for CVA signs. Pt denies recent hearing changes, tinnitus, diplopia, dysarthria, discoordination, or decreased mentation/consciousness. Pt denies hx of HTN, hyperlipidemia, diabetes, arrhythmia, head trauma, seizure, migraines, back/neck problems, CVA, anxiety/panic disorders, depression, or excessive smoking or drinking. PT-OP-C Subjective Start: 07/11/21 14:32 Freq: Status: Active Protocol: Document 07/11/21 12:00 DCW (Rec: 07/11/21 15:01 DCW [id number]) OP-PT Subjective Patient Comments Patient Comments Basically, if I just sit down on my bed, and go to lay back , the room starts spinning. Patient Questionnaires Dizziness Handicap Inventory DHI Score 18% DHI Functional Impairment 1 to 19% Impaired (Score 1-19) PT-OP-O Vestibular Start: 07/11/21 14:32 Freq: Status: Active Protocol: Document 07/11/21 12:00 DCW (Rec: 07/11/21 15:01 DCW [id number]) Vestibular Assessment Auditory Tests Man Test Within normal limits Rinne Test Negative Air Conduction Results Equal Visual Testing Smooth Pursuits Horizontal WNL Smooth Pursuits Vertical WNL Saccades Horizontal WNL Saccades Vertical WNL Heave Test Positive Bilateral Thrust Head Positive Bilateral Positional Testing Aneta-Hallpike Positive Right,Negative Left, Upbeating,< 60 Seconds PT-OP-Q Treatments Start: 07/11/21 14:32 Freq: Status: Active Protocol: Document 07/11/21 12:00 DCW (Rec: 07/11/21 15:01 DCW [id number]) Canalithic Repositioning BPPV Treatment Elbert Affected Canal(s) R Posterior Reps x2 Comments Modified Elbert PT-OP-T Assessment and Plan Start: 07/11/21 14:32 Freq: Status: Active Protocol: Document 07/11/21 12:00 DCW (Rec: 07/11/21 15:01 [facility] [id number]) Physical Therapy Assessment Rehab Potential Rehabilitation Potential Excellent Evaluation Complexity Number of Personal Factors/Comorbidities 1-2 Number of Body Systems Impaired 1-2 Clinical Presentation at Evaluation Stable Impairments Impairments Balance,Coordination, Vestibular Goals Two Impairment Positive right [place]-Hallpike Short Term Goal (STG) Pt to display negative positional testing bilaterally One Impairment Pt experiences vertigo with positional changes in bed Short Term Goal (STG) Pt to demonstrate ability to perform all bed mobility without any complaints of vertigo STG Duration 08/10/21 Assessment Summary Assessment During right [place]-Hallpike test , pt complained of vertigo and demonstrated very mild nystagmus lasting approximately 3 seconds, that was most likely torsional up- beating, however was difficult to determine directionality due to it's brief nature. 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 Pt was treated with a right-sided modified Elbert maneuver. Pt complained of symptoms in the first and third position, which is normally indicative of a successful treatment. Follow-up testing was again mildly positive, and a second modified Elbert was performed. Pt was educated on BPPV, expectations for treatment, possible recurrence (BPPV has a ~50% recurrence rate in the five years following treatment ), and post-Elbert restrictions . Pt to return in ~1 week for a follow-up appointment, and intermittently afterward as indicated for treatment of BPPV. Physical Therapy Plan Frequency and Duration Frequency of Treatment 1-2 x/week Duration of Treatment One month Plan of Care Start Date 07/11/21 Plan of Care End Date 08/10/21 Therapeutic Interventions Therapeutic Interventions Balance Training,Canalithic Repositioning,Manual Therapy, Neuromuscular Re-education, Patient/Caregiver Education, Self-Care/Home Management, Vestibular Rehabilitation Next Visit Focus/Plan Next Note Type Treatment Note Next Visit Plan Positional testing, CRM as indicated
--- NOTE | 2021-07-11 15:01 | PT.OPPOC ---
Physical, Occupational & Speech Therapy At [facility] Current Diagnoses Benign paroxysmal vertigo, right ear (07/11/21) Dizziness and giddiness (07/11/21) Visit Care Team Role Provider Type Nancy Doan Attending Provider Non-Staff Family Provider Primary Care Provider Referring Provider Specialty: Internal Medicine Address: [address] [place] [address], [facility] [address], [place], [address] Email: Plan Of Care PT-OP-T Assessment and Plan Start: 07/11/21 14:32 Freq: Status: Active Protocol: Document 07/11/21 12:00 DCW (Rec: 07/11/21 15:01 DCW [id number]) Physical Therapy Assessment Rehab Potential Rehabilitation Potential Excellent Evaluation Complexity Number of Personal Factors/Comorbidities 1-2 Number of Body Systems Impaired 1-2 Clinical Presentation at Evaluation Stable Impairments Impairments Balance,Coordination, Vestibular Goals Two Impairment Positive right Aneta-Hallpike Short Term Goal (STG) Pt to display negative positional testing bilaterally One Impairment Pt experiences vertigo with positional changes in bed Short Term Goal (STG) Pt to demonstrate ability to perform all bed mobility without any complaints of vertigo STG Duration 08/10/21 Assessment Summary Assessment During right [place]-Hallpike test , pt complained of vertigo and demonstrated very mild nystagmus lasting approximately 3 seconds, that was most likely torsional up- beating, however was difficult to determine directionality due to it's brief nature. 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 Pt was treated with a right-sided modified Elbert maneuver. Pt complained of symptoms in the first and third position, which is normally indicative of a successful treatment. Follow-up testing was again mildly positive, and a second modified Elbert was performed. Pt was educated on BPPV, expectations for treatment, possible recurrence (BPPV has a ~50% recurrence rate in the five years following treatment ), and post-Elbert restrictions . Pt to return in ~1 week for a follow-up appointment, and intermittently afterward as indicated for treatment of BPPV. Physical Therapy Plan Frequency and Duration Frequency of Treatment 1-2 x/week Duration of Treatment One month Plan of Care Start Date 07/11/21 Plan of Care End Date 08/10/21 Therapeutic Interventions Therapeutic Interventions Balance Training,Canalithic Repositioning,Manual Therapy, Neuromuscular Re-education, Patient/Caregiver Education, Self-Care/Home Management, Vestibular Rehabilitation Next Visit Focus/Plan Next Note Type Treatment Note Next Visit Plan Positional testing, CRM as indicated Plan of Care Dates Plan of Care Start Date 07/11/21 Plan of Care End Date 08/10/21 Electronically Signed by: Vamshi De Jesus, PT 07/11/21 0101 If you are in agreement with this Plan of Care, please return a signed and dated copy. I have reviewed this Plan of Care and certify that the skilled therapy services above are required to meet the patient?s needs. Physician Signature Date Printed Name and Credentials Clinical Instructor Signature Printed Name and Credentials
--- NOTE | 2021-07-13 08:09 | PT.OTN ---
Current Diagnoses Benign paroxysmal vertigo, right ear (07/13/21) Dizziness and giddiness (07/13/21) Physical Therapy Treatment Note PT-OP-A Visit Information Start: 07/11/21 14:32 Freq: Status: Active Protocol: Document 07/13/21 07:29 AMB (Rec: 07/13/21 08:08 AMB [id number]) Out-Patient Physical Therapy Visit Information Visit Information Visit Type Treatment Note Visit Start Time 07:30 Visit Stop Time 08:15 Total Visit Minutes 45 Visit Number 2 PT-OP-B Current Condition Start: 07/11/21 14:32 Freq: Status: Active Protocol: Document 07/11/21 12:00 DCW (Rec: 07/11/21 15:01 DCW [id number]) Current Condition History of Current Condition Onset Date Early May, Current Complaints Positional vertigo History of Current Condition Pt is an 81 year old female complaining of a ~2 month history of motion-induced vertigo. Pt reports episodes last a couple of seconds. Symptoms are provoked by laying back in bed, bending forward, and looking up. Symptoms reported as the room starts spinning. Pt was originally seen in the ED to rule out CVA, both MRI and CT were unremarkable for CVA signs. Pt denies recent hearing changes, tinnitus, diplopia, dysarthria, discoordination, or decreased mentation/consciousness. Pt denies hx of HTN, hyperlipidemia, diabetes, arrhythmia, head trauma, seizure, migraines, back/neck problems, CVA, anxiety/panic disorders, depression, or excessive smoking or drinking. PT-OP-C Subjective Start: 07/11/21 14:32 Freq: Status: Active Protocol: Document 07/13/21 07:30 AMB (Rec: 07/13/21 08:09 AMB [id number]) OP-PT Subjective Patient Comments Patient Comments Pt reports continued mild sx, but nothing severe, only noticed when bending forward, didn't notice with bed mobility this morining. PT-OP-O Vestibular Start: 07/11/21 14:32 Freq: Status: Active Protocol: Document 07/11/21 12:00 DCW (Rec: 07/11/21 15:01 DCW [id number]) Vestibular Assessment Auditory Tests Man Test Within normal limits Rinne Test Negative Air Conduction Results Equal Visual Testing Smooth Pursuits Horizontal WNL Smooth Pursuits Vertical WNL Saccades Horizontal WNL Saccades Vertical WNL Heave Test Positive Bilateral Thrust Head Positive Bilateral Positional Testing Aneta-Hallpike Positive Right,Negative Left, Upbeating,< 60 Seconds PT-OP-Q Treatments Start: 07/11/21 14:32 Freq: Status: Active Protocol: Document 07/13/21 07:29 AMB (Rec: 07/13/21 08:08 AMB [id number]) Neuro Re-Education Treatment Vestibular Rehabilitation walking with head turns Comments horizonatal- no sx Other Activities R Elbert Comments mild sx in 1st position, none in others PT-OP-T Assessment and Plan Start: 07/11/21 14:32 Freq: Status: Active Protocol: Document 07/13/21 07:29 AMB (Rec: 07/13/21 08:08 AMB [id number]) Physical Therapy Assessment Goals Two Impairment Positive right [place]-Hallpike Short Term Goal (STG) Pt to display negative positional testing bilaterally One Impairment Pt experiences vertigo with positional changes in bed Short Term Goal (STG) Pt to demonstrate ability to perform all bed mobility without any complaints of vertigo STG Duration 08/10/21 Assessment Summary Assessment Tested L and R [place]-Hallpike today, no sx on L, pt reported mild dizziness on R side, possible 1-2 seconds of nystagmus but difficult to see due to mild sx and short duration. Went ahead with one repetition of Rachel Boswell. Pt educated in post manuever precations. Physical Therapy Plan Next Visit Focus/Plan Next Note Type Treatment Note Next Visit Plan Positional testing, CRM as indicated
--- NOTE | 2021-07-18 08:14 | PT.OTN ---
Current Diagnoses Benign paroxysmal vertigo, right ear (07/18/21) Dizziness and giddiness (07/18/21) Physical Therapy Treatment Note PT-OP-A Visit Information Start: 07/11/21 14:32 Freq: Status: Active Protocol: Document 07/18/21 07:35 AMB (Rec: 07/18/21 08:14 AMB [id number]) Out-Patient Physical Therapy Visit Information Visit Information Visit Type Treatment Note Visit Start Time 07:30 Visit Stop Time 08:15 Total Visit Minutes 45 Visit Number 3 PT-OP-B Current Condition Start: 07/11/21 14:32 Freq: Status: Active Protocol: Document 07/11/21 12:00 DCW (Rec: 07/11/21 15:01 DCW [id number]) Current Condition History of Current Condition Onset Date Early May, Current Complaints Positional vertigo History of Current Condition Pt is an 81 year old female complaining of a ~2 month history of motion-induced vertigo. Pt reports episodes last a couple of seconds. Symptoms are provoked by laying back in bed, bending forward, and looking up. Symptoms reported as the room starts spinning. Pt was originally seen in the ED to rule out CVA, both MRI and CT were unremarkable for CVA signs. Pt denies recent hearing changes, tinnitus, diplopia, dysarthria, discoordination, or decreased mentation/consciousness. Pt denies hx of HTN, hyperlipidemia, diabetes, arrhythmia, head trauma, seizure, migraines, back/neck problems, CVA, anxiety/panic disorders, depression, or excessive smoking or drinking. PT-OP-C Subjective Start: 07/11/21 14:32 Freq: Status: Active Protocol: Document 07/18/21 07:35 AMB (Rec: 07/18/21 08:14 AMB [id number]) OP-PT Subjective Patient Comments Patient Comments Pt continues to report sx with bending forward, she has been trying to avoid rolling over in bed. PT-OP-O Vestibular Start: 07/11/21 14:32 Freq: Status: Active Protocol: Document 07/11/21 12:00 DCW (Rec: 07/11/21 15:01 DCW [id number]) Vestibular Assessment Auditory Tests Man Test Within normal limits Rinne Test Negative Air Conduction Results Equal Visual Testing Smooth Pursuits Horizontal WNL Smooth Pursuits Vertical WNL Saccades Horizontal WNL Saccades Vertical WNL Heave Test Positive Bilateral Thrust Head Positive Bilateral Positional Testing Aneta-Hallpike Positive Right,Negative Left, Upbeating,< 60 Seconds PT-OP-Q Treatments Start: 07/11/21 14:32 Freq: Status: Active Protocol: Document 07/18/21 07:35 AMB (Rec: 07/18/21 08:14 AMB [id number]) Neuro Re-Education Treatment Other Activities R Elbert Comments mild sx in 1st position and 3rd position none in others PT-OP-T Assessment and Plan Start: 07/11/21 14:32 Freq: Status: Active Protocol: Document 07/18/21 07:35 AMB (Rec: 07/18/21 08:14 AMB [id number]) Physical Therapy Assessment Goals Two Impairment Positive right [place]-Hallpike Short Term Goal (STG) Pt to display negative positional testing bilaterally One Impairment Pt experiences vertigo with positional changes in bed Short Term Goal (STG) Pt to demonstrate ability to perform all bed mobility without any complaints of vertigo STG Duration 08/10/21 Assessment Summary Assessment Tested R Aneta-Hallpike and R supine roll. Pt with mild sx with both, still can't really visualize sx, but sx are so consistent with BPPV. If pt continuing to have sx then will recheck supine roll next visit.
--- NOTE | 2021-07-25 08:16 | PT.OTN ---
Current Diagnoses Benign paroxysmal vertigo, right ear (07/25/21) Dizziness and giddiness (07/25/21) Physical Therapy Treatment Note PT-OP-A Visit Information Start: 07/11/21 14:32 Freq: Status: Active Protocol: Document 07/25/21 07:35 AMB (Rec: 07/25/21 08:15 AMB [id number]) Out-Patient Physical Therapy Visit Information Visit Information Visit Type Treatment Note Visit Start Time 07:30 Visit Stop Time 08:15 Total Visit Minutes 45 Visit Number 4 PT-OP-B Current Condition Start: 07/11/21 14:32 Freq: Status: Active Protocol: Document 07/11/21 12:00 DCW (Rec: 07/11/21 15:01 DCW [id number]) Current Condition History of Current Condition Onset Date Early May, Current Complaints Positional vertigo History of Current Condition Pt is an 81 year old female complaining of a ~2 month history of motion-induced vertigo. Pt reports episodes last a couple of seconds. Symptoms are provoked by laying back in bed, bending forward, and looking up. Symptoms reported as the room starts spinning. Pt was originally seen in the ED to rule out CVA, both MRI and CT were unremarkable for CVA signs. Pt denies recent hearing changes, tinnitus, diplopia, dysarthria, discoordination, or decreased mentation/consciousness. Pt denies hx of HTN, hyperlipidemia, diabetes, arrhythmia, head trauma, seizure, migraines, back/neck problems, CVA, anxiety/panic disorders, depression, or excessive smoking or drinking. PT-OP-C Subjective Start: 07/11/21 14:32 Freq: Status: Active Protocol: Document 07/25/21 07:35 AMB (Rec: 07/25/21 08:15 AMB [id number]) OP-PT Subjective Patient Comments Patient Comments Pt noticing continued sx but at a lesser degree. PT-OP-O Vestibular Start: 07/11/21 14:32 Freq: Status: Active Protocol: Document 07/11/21 12:00 DCW (Rec: 07/11/21 15:01 DCW [id number]) Vestibular Assessment Auditory Tests Man Test Within normal limits Rinne Test Negative Air Conduction Results Equal Visual Testing Smooth Pursuits Horizontal WNL Smooth Pursuits Vertical WNL Saccades Horizontal WNL Saccades Vertical WNL Heave Test Positive Bilateral Thrust Head Positive Bilateral Positional Testing Aneta-Hallpike Positive Right,Negative Left, Upbeating,< 60 Seconds PT-OP-Q Treatments Start: 07/11/21 14:32 Freq: Status: Active Protocol: Document 07/25/21 07:35 AMB (Rec: 07/25/21 08:15 AMB [id number]) Neuro Re-Education Treatment Other Activities 1 Details Gee daroff Reps/Duration x3 Comments Sx with first rep, then none, gave for HEP PT-OP-T Assessment and Plan Start: 07/11/21 14:32 Freq: Status: Active Protocol: Document 07/25/21 07:35 AMB (Rec: 07/25/21 08:15 AMB [id number]) Physical Therapy Assessment Goals Two Impairment Positive right [place]-Hallpike Short Term Goal (STG) Pt to display negative positional testing bilaterally One Impairment Pt experiences vertigo with positional changes in bed Short Term Goal (STG) Pt to demonstrate ability to perform all bed mobility without any complaints of vertigo STG Duration 08/10/21 Assessment Summary Assessment Sx with first Gee Daroff but then none after that, Joseline is also complaining of neck pain, wondering if that is having an impact. Physical Therapy Plan Next Visit Focus/Plan Next Note Type Treatment Note Next Visit Plan Positional testing, CRM as indicated
--- NOTE | 2021-07-27 08:30 | PT.OTN ---
Current Diagnoses Benign paroxysmal vertigo, right ear (07/27/21) Dizziness and giddiness (07/27/21) Physical Therapy Treatment Note PT-OP-A Visit Information Start: 07/11/21 14:32 Freq: Status: Active Protocol: Document 07/27/21 07:35 AMB (Rec: 07/27/21 08:29 AMB [id number]) Out-Patient Physical Therapy Visit Information Visit Information Visit Type Treatment Note Visit Start Time 07:30 Visit Stop Time 08:15 Total Visit Minutes 45 Visit Number 5 PT-OP-B Current Condition Start: 07/11/21 14:32 Freq: Status: Active Protocol: Document 07/11/21 12:00 DCW (Rec: 07/11/21 15:01 DCW [id number]) Current Condition History of Current Condition Onset Date Early May, Current Complaints Positional vertigo History of Current Condition Pt is an 81 year old female complaining of a ~2 month history of motion-induced vertigo. Pt reports episodes last a couple of seconds. Symptoms are provoked by laying back in bed, bending forward, and looking up. Symptoms reported as the room starts spinning. Pt was originally seen in the ED to rule out CVA, both MRI and CT were unremarkable for CVA signs. Pt denies recent hearing changes, tinnitus, diplopia, dysarthria, discoordination, or decreased mentation/consciousness. Pt denies hx of HTN, hyperlipidemia, diabetes, arrhythmia, head trauma, seizure, migraines, back/neck problems, CVA, anxiety/panic disorders, depression, or excessive smoking or drinking. PT-OP-C Subjective Start: 07/11/21 14:32 Freq: Status: Active Protocol: Document 07/27/21 07:30 AMB (Rec: 07/27/21 08:30 AMB [id number]) OP-PT Subjective Patient Comments Patient Comments Joseline is reporting increased sx since starting Gee Daroff at home PT-OP-O Vestibular Start: 07/11/21 14:32 Freq: Status: Active Protocol: Document 07/11/21 12:00 DCW (Rec: 07/11/21 15:01 DCW [id number]) Vestibular Assessment Auditory Tests Man Test Within normal limits Rinne Test Negative Air Conduction Results Equal Visual Testing Smooth Pursuits Horizontal WNL Smooth Pursuits Vertical WNL Saccades Horizontal WNL Saccades Vertical WNL Heave Test Positive Bilateral Thrust Head Positive Bilateral Positional Testing [place]-Hallpike Positive Right,Negative Left, Upbeating,< 60 Seconds PT-OP-Q Treatments Start: 07/11/21 14:32 Freq: Status: Active Protocol: Document 07/27/21 07:35 AMB (Rec: 07/27/21 08:29 AMB [id number]) Manual Therapy Treatment Soft Tissue Mobilization 1 Body Location neck Mobilization Type Myofascial Release Intensity/Depth Moderate Body Position Sitting Neuro Re-Education Treatment Vestibular Rehabilitation VOR Retraining Comments arm length, quick Other Activities R Gufoni Reps/Duration x2 Comments tolerated well PT-OP-T Assessment and Plan Start: 07/11/21 14:32 Freq: Status: Active Protocol: Document 07/27/21 07:35 AMB (Rec: 07/27/21 08:29 AMB [id number]) Physical Therapy Assessment Goals Two Impairment Positive right [place]-Hallpike Short Term Goal (STG) Pt to display negative positional testing bilaterally One Impairment Pt experiences vertigo with positional changes in bed Short Term Goal (STG) Pt to demonstrate ability to perform all bed mobility without any complaints of vertigo STG Duration 08/10/21 Assessment Summary Assessment As Joseline continues to have symptoms, but not realy enough nystagmus to discern torsionality we did change up her treatment today. VOR was easy, Gufoni was tolerated well, pt does have signficant bilateral upper trap/levator scap tightness, could possibly be cervicogenic. Less likely , but should be considered. Physical Therapy Plan Next Visit Focus/Plan Next Note Type Treatment Note Next Visit Plan Positional testing, CRM as indicated
--- NOTE | 2021-08-02 16:02 | PT.OTN ---
Current Diagnoses Benign paroxysmal vertigo, right ear (08/02/21) Dizziness and giddiness (08/02/21) Physical Therapy Treatment Note PT-OP-A Visit Information Start: 07/11/21 14:32 Freq: Status: Active Protocol: Document 08/02/21 07:31 AMB (Rec: 08/02/21 08:21 AMB [id number]) Out-Patient Physical Therapy Visit Information Visit Information Visit Type Treatment Note Visit Start Time 07:30 Visit Stop Time 08:15 Total Visit Minutes 45 Visit Number 6 PT-OP-B Current Condition Start: 07/11/21 14:32 Freq: Status: Active Protocol: Document 07/11/21 12:00 DCW (Rec: 07/11/21 15:01 DCW [id number]) Current Condition History of Current Condition Onset Date Early May, Current Complaints Positional vertigo History of Current Condition Pt is an 81 year old female complaining of a ~2 month history of motion-induced vertigo. Pt reports episodes last a couple of seconds. Symptoms are provoked by laying back in bed, bending forward, and looking up. Symptoms reported as the room starts spinning. Pt was originally seen in the ED to rule out CVA, both MRI and CT were unremarkable for CVA signs. Pt denies recent hearing changes, tinnitus, diplopia, dysarthria, discoordination, or decreased mentation/consciousness. Pt denies hx of HTN, hyperlipidemia, diabetes, arrhythmia, head trauma, seizure, migraines, back/neck problems, CVA, anxiety/panic disorders, depression, or excessive smoking or drinking. PT-OP-C Subjective Start: 07/11/21 14:32 Freq: Status: Active Protocol: Document 08/02/21 07:31 AMB (Rec: 08/02/21 08:21 AMB [id number]) OP-PT Subjective Patient Comments Patient Comments Joseline is reporting decreased dizziness. Continues to have mild dizziness getting into bed. PT-OP-O Vestibular Start: 07/11/21 14:32 Freq: Status: Active Protocol: Document 07/11/21 12:00 DCW (Rec: 07/11/21 15:01 DCW [id number]) Vestibular Assessment Auditory Tests Man Test Within normal limits Rinne Test Negative Air Conduction Results Equal Visual Testing Smooth Pursuits Horizontal WNL Smooth Pursuits Vertical WNL Saccades Horizontal WNL Saccades Vertical WNL Heave Test Positive Bilateral Thrust Head Positive Bilateral Positional Testing [place]-Hallpike Positive Right,Negative Left, Upbeating,< 60 Seconds PT-OP-Q Treatments Start: 07/11/21 14:32 Freq: Status: Active Protocol: Document 08/02/21 16:00 AMB (Rec: 08/02/21 16:02 AMB [id number]) Manual Therapy Treatment Soft Tissue Mobilization 1 Body Location neck Mobilization Type Myofascial Release Intensity/Depth Moderate Body Position Sitting Neuro Re-Education Treatment Other Activities R Elbert Comments mild sx in 1st position and 3rd position none in others PT-OP-T Assessment and Plan Start: 07/11/21 14:32 Freq: Status: Active Protocol: Document 08/02/21 16:00 AMB (Rec: 08/02/21 16:02 AMB [id number]) Physical Therapy Assessment Goals Two Impairment Positive right [place]-Hallpike Short Term Goal (STG) Pt to display negative positional testing bilaterally One Impairment Pt experiences vertigo with positional changes in bed Short Term Goal (STG) Pt to demonstrate ability to perform all bed mobility without any complaints of vertigo STG Duration 08/10/21 Assessment Summary Assessment Joseline feels sx are better, but not fully resolved. Again had sx in first and third position of An[place]-Hallpike (mild ) but not nystagmus seen. As she is having upcoming total shoulder surgery, will put on hold, and pt to call clinic if sx worsen. Physical Therapy Plan Hold Physical Therapy Reason For Hold on hold for 1 month, if no phone call then ok to d/c
--- NOTE | 2021-10-04 08:09 | PT.OPDS ---
Current Diagnoses Dizziness and giddiness (08/02/21) Visit Care Team Role Provider Type Nancy Doan Attending Provider Non-Staff Family Provider Primary Care Provider Referring Provider Specialty: Internal Medicine Address: [address] [place] [address], [address], [place], [address] Email: Visit Number Visit Number 6 Discharge Summary PT-OP-B Current Condition Start: 07/11/21 14:32 Freq: Status: Active Protocol: Document 07/11/21 12:00 DCW (Rec: 07/11/21 15:01 DCW [id number]) Current Condition History of Current Condition Onset Date Early May, Current Complaints Positional vertigo History of Current Condition Pt is an 81 year old female complaining of a ~2 month history of motion-induced vertigo. Pt reports episodes last a couple of seconds. Symptoms are provoked by laying back in bed, bending forward, and looking up. Symptoms reported as the room starts spinning. Pt was originally seen in the ED to rule out CVA, both MRI and CT were unremarkable for CVA signs. Pt denies recent hearing changes, tinnitus, diplopia, dysarthria, discoordination, or decreased mentation/consciousness. Pt denies hx of HTN, hyperlipidemia, diabetes, arrhythmia, head trauma, seizure, migraines, back/neck problems, CVA, anxiety/panic disorders, depression, or excessive smoking or drinking. PT-OP-C Subjective Start: 07/11/21 14:32 Freq: Status: Active Protocol: Document 08/02/21 07:31 AMB (Rec: 08/02/21 08:21 AMB [id number]) OP-PT Subjective Patient Comments Patient Comments Joseline is reporting decreased dizziness. Continues to have mild dizziness getting into bed. PT-OP-O Vestibular Start: 07/11/21 14:32 Freq: Status: Active Protocol: Document 07/11/21 12:00 DCW (Rec: 07/11/21 15:01 DCW [id number]) Vestibular Assessment Auditory Tests Man Test Within normal limits Rinne Test Negative Air Conduction Results Equal Visual Testing Smooth Pursuits Horizontal WNL Smooth Pursuits Vertical WNL Saccades Horizontal WNL Saccades Vertical WNL Heave Test Positive Bilateral Thrust Head Positive Bilateral Positional Testing [place]-Hallpike Positive Right,Negative Left, Upbeating,< 60 Seconds PT-OP-T Assessment and Plan Start: 07/11/21 14:32 Freq: Status: Active Protocol: Document 10/04/21 08:08 AMB (Rec: 10/04/21 08:09 AMB [id number]) Physical Therapy Assessment Goals Two Impairment Positive right [place]-Hallpike Short Term Goal (STG) Pt to display negative positional testing bilaterally STG Duration MET One Impairment Pt experiences vertigo with positional changes in bed Short Term Goal (STG) Pt to demonstrate ability to perform all bed mobility without any complaints of vertigo STG Duration PROGRESS MADE Assessment Summary Assessment Pt was on hold and has not called the clinic for follow up therefore she is discharged at this time. Physical Therapy Plan Discharge Physical Therapy Discharge Reasons No Longer Attending PT
== END 2021-10-08 14:31 ==
LOC: PHYS 07:30
PROVIDERS: Family Provider Internal Medicine; PCP Internal Medicine; Referring Provider Internal Medicine; Visit Provider Internal Medicine
DX: R42 Dizziness and giddiness (principal)
CPT/HCPCS: 95992; 97112; 97140; 97161